=== PATIENT | female | born 1995 | race Caucasian/White ===

== ENCOUNTER 2016-08-21 14:49 | Emergency (ER) | payer OTHER ==
[~2016-08-21] VITALS: Wt 142.9 kg
[~2016-08-21 14:49] MED LIST: AMOXICILLIN500 M2 PO; AMOXICILLIN500 MG PO; AUGMENTIN 875 M1 TAB PO; BACTRIM DS 8001 TA1 PO; BIRTHCONTROL; CATAFLAM50 MG PO; CELEXA10 MG PO; CLARITIN10 MG PO; FLOMAX0.4 MG PO; HYDROCHLOROTHIA25 M1 PO; KEFLEX500 MG PO; LAMICTAL200 MG PO; LOMOTIL 0.025 M1 TA1 PO; MEDROL DOSEPAK4 MG PO; MONO-LINYAH 281 EACH PO; MOTRIN800 MG PO; NO DAILY MEDS; NORCO 5-325 TA1 EACH PO; PHENERGAN W/DM480 ML PO; PREMARIN0.625 MG PO; PROTONIX40 MG PO; PYRIDIUM200 M1 PO; ROBITUSSIN AC 110 ML PO; SINGULAIR10 M1 PO; TESSALON PERLE200 MG PO; VENTOLIN H0.09 MG/AC INH; VICODIN 5/500 505 MG PO; ZITHROMAX Z PA250 MG PO; ZITHROMAX250 MG PO; ZOFRAN ODT4 MG SL; ZYRTEC10 MG PO
[2016-08-21] MEDS ORDERED: TRAZODONE50 MG PO (15:00)
[2016-08-21] MEDS ORDERED: ATENOLOL50 M1 PO (15:01)
[2016-08-21] MEDS ORDERED: ZOLOFT25 MG PO (15:01)
[2016-08-21 15:54] LABS: BASO % 0.3 % (0.0-1.0); EOS # 0.1 10*3/uL (0.0-0.4); HEMATOCRIT 38.8 % (37.0-47.0); HEMOGLOBIN 12.7 g/dl (12.0-16.0); IG # 0.1 10*3/uL (0.0-0.1); LYMPH % 25.4 % (27.0-41.0); MEAN CELL VOLUME 95.6 fl (81.0-99.0); MEAN CORPUSCULAR HGB 31.3 pg (27.0-31.0); MEAN CORPUSCULAR HGB CONC 32.7 g/dl (33.0-37.0); MEAN PLATELET VOLUME 9.3 fl (9.6-12.3); MONO # 0.8 10*3/uL (0.1-1.0); MONO % 6.5 % (3.0-9.0); NEUT # 7.9 10*3/uL (2.3-7.9); NEUT % 66.4 % (47.0-73.0); PLATELET COUNT AUTOMATED 350 10*3/uL (130-400); RED BLOOD COUNT 4.06 10*6/uL (4.10-5.10); RED CELL DISTRI WIDTH 13.4 % (0-14.5); WHITE BLOOD COUNT 11.9 10*3/uL (4.8-10.8)
[2016-08-21 16:10] LABS: ALBUMIN 2.9 gm/dl (3.1-4.5); ALKALINE PHOSPHATASE 66 U/L (45-117); BILIRUBIN, TOTAL 0.3 mg/dl (0.2-1.0); BUN 6 mg/dl (7-24); CARBON DIOXIDE 26 mmol/L (21-32); CHLORIDE 105 mmol/L (98-107); EST GLOM FILT AFRICAN AMERICAN > 60 ml/min; GLUCOSE 105 mg/dL (65-99); POTASSIUM 4.2 mmol/L (3.5-5.1); SGOT/AST 25 IU/L (3-35); SGPT/ALT 25 U/L (12-78); SODIUM 140 mmol/L (136-145); TOTAL PROTEIN 7.7 gm/dL (6.4-8.2)
[2016-08-21 16:38] LABS: BILIRUBIN NEGATIVE (NEGATIVE); BLOOD NEGATIVE (NEGATIVE); CLARITY SL CLOUDY (CLEAR); COLOR YELLOW (YELLOW); GLUCOSE NEGATIVE (NEGATIVE); KETONE NEGATIVE (NEGATIVE); LEUKO ESTERASE 1+ (NEGATIVE); NITRITE NEGATIVE (NEGATIVE); PROTEIN NEGATIVE (NEGATIVE); SPECIFIC GRAVITY 1.025 (1.005-1.030); UROBILINOGEN 0.2 E.U./dl (0.2-1.0)
[2016-08-21 16:52] LABS: BACTERIA 1+; EPITHELIAL CELLS 55-60; RBC 0-2 rbc/hpf (0-2); URINE REFLEX COMMENT YES (NO)
[2016-08-21 16:54] VITALS: BP 115/62
[2016-08-21 17:00] LABS: URINE AMPHETAMINES < 1000 (1000ng/ml); URINE BARBITURATES < 200 (200ng/ml); URINE COCAINE < 300 (300ng/ml)
[2016-08-21] MEDS ORDERED: BACTRIM DS 8001 TA1 PO (17:22)
== END 2016-08-21 17:31 | disposition home or self-care (01) ==
LOC: ED 14:49
PROVIDERS: Physician Assistant
DX: N30.00 Acute cystitis without hematuria (principal); R19.7 Diarrhea, unspecified; I10 Essential (primary) hypertension; Z79.899 Other long term (current) drug therapy

== ENCOUNTER → 2016-09-13 | Day surgery (SDC) | payer OTHER ==
[~2016-09-13] VITALS: Ht 165.1 cm; Wt 145.1 kg
[~2016-09-13] MED LIST changes: +ATENOLOL50 M1 PO; +AUGMENTIN 875-875 MG PO; +DIFLUCAN150 MG PO; +NYSTATIN100000 U/M PO; +OMEPRAZOLE40 MG PO; +TRAZODONE50 MG PO; +ZOLOFT25 MG PO
--- NOTE | ~2016-09-13 | O ---
[place], [place] O[facility]ATIVE NOTE [id number] UN[facility] #: [id number] ROOM: DOCTOR: QUOC GARSIA,MARYCHUY BIRTHDATE: [birth year] DOS: 09/13/2016 INDICATIONS: The patient with dyspepsia and epigastric distress. PROCEDURE: Today's procedure part of investigation is panendoscopy plus biopsy. PREMEDICATION: Versed and Diprivan. SCOPE: Olympus forward-viewing gastroscope Q10 video. REPORT: After putting the patient in left lateral position and application of lubricant to the scope, the scope was introduced. Thereafter, under direct visualization, I advanced the length of esophagus without difficulty. Gastric pouch was entered. Distal esophageal ulceration was identified at the esophagogastric junction. This was photographed, biopsied. Gastric pouch was entered. Gastritis was seen. Duodenal bulb, second and third part within normal limits. The patient extubated and tolerated procedure well. IMPRESSION: Distal esophageal ulcer, gastritis. PLAN AND DISCUSSION: Protonix 40 mg 1 every day would be recommended clinical reassessment. Awaiting biopsy results. The patient was advised to be on antireflux and observation after diet with low fat and high fiber diet. Workup is in progress. Follow up routinely with you in office and with us p.r.n. MARYCHUY KUMARI MD CM:OPRECORD:OPERATIVE NOTE 1404 [id number] MARYCHUY KUMARI MD 09/13/16 1623 interface
--- NOTE | ~2016-09-13 | O ---
[place], [place] OPERATIVE NOTE [facility] [id number] UNIT #: [id number] ROOM: DOCTOR: QUOC GARSIA,MARYCHUY BIRTHDATE: [birth year] DOS: 09/13/2016 INDICATIONS: The patient is a 21-year-old who has presented with epigastric abdominal pain and cramp. PAST MEDICAL HISTORY: With morbid obesity, depression, anxiety, and hypertension. PAST SURGICAL HISTORY: Minor surgeries. PHYSICAL FINDINGS: Acanthosis nigricans around the neck, otherwise except morbid obesity and back surgeries has been noticed. PROCEDURE: Today's procedure part of investigation is panendoscopy and colonoscopy. PREMEDICATION: Versed and Diprivan. SCOPE: Olympus folding colonoscope 10L video. REPORT: After putting the patient in the left lateral position and after application of lubricant to the scope, the scope was introduced. Thereafter, under direct visualization, I advanced through the length of colon without difficulty. Base of the cecum explored, appendiceal orifice identified, and ileocecal valve was defined. No acute pathology seen. The patient extubated, tolerated procedure well. IMPRESSION: Normal colonoscopic examination. PLAN AND DISCUSSION: We are concerned about gastric anatomy. MARYCHUY KUMARI MD CM:OPRECORD:OPERATIVE NOTE 1404 1619 MARYCHUY KUMARI MD 09/13/16 1620 interface
[2016-09-13 12:19] VITALS: BP 130/71
[2016-09-13 13:53] VITALS: BP 92/52
[2016-09-13 14:08] VITALS: BP 113/86
[2016-09-13 14:23] VITALS: BP 132/81
== END | disposition home or self-care (01) ==
LOC: SDC 09-09 10:15
DX: Z12.11 Encounter for screening for malignant neoplasm of colon (principal); K29.50 Unspecified chronic gastritis without bleeding; K21.0 Gastro-esophageal reflux disease with esophagitis; K22.10 Ulcer of esophagus without bleeding; E66.01 Morbid (severe) obesity due to excess calories; F32.9 Major depressive disorder, single episode, unspecified; F41.9 Anxiety disorder, unspecified; I10 Essential (primary) hypertension; J45.909 Unspecified asthma, uncomplicated; Z80.9 Family history of malignant neoplasm, unspecified; Z82.49 Family history of ischemic heart disease and other diseases of the circulatory system; F17.210 Nicotine dependence, cigarettes, uncomplicated

== ENCOUNTER 2016-09-19 10:40 | Emergency (ER) | payer OTHER ==
[~2016-09-19] VITALS: Ht 165.1 cm; Wt 136.1 kg
[~2016-09-19 10:40] MED LIST changes: -AUGMENTIN 875-875 MG PO; -DIFLUCAN150 MG PO; -NYSTATIN100000 U/M PO; -OMEPRAZOLE40 MG PO
[2016-09-19 10:43] VITALS: BP 131/69
[2016-09-19] MEDS ORDERED: OMEPRAZOLE40 MG PO (10:46)
[2016-09-19] MEDS ORDERED: NYSTATIN100000 U/M PO (11:54)
[2016-09-19] MEDS ORDERED: DIFLUCAN150 MG PO (11:54)
[2016-09-19] MEDS ORDERED: AUGMENTIN 875-875 MG PO (11:54)
== END 2016-09-19 12:06 | disposition home or self-care (01) ==
LOC: ED 10:40
DX: H65.03 Acute serous otitis media, bilateral (principal); J01.10 Acute frontal sinusitis, unspecified; B37.9 Candidiasis, unspecified; L29.2 Pruritus vulvae; R30.9 Painful micturition, unspecified; J45.909 Unspecified asthma, uncomplicated; F32.9 Major depressive disorder, single episode, unspecified; F17.200 Nicotine dependence, unspecified, uncomplicated; Z79.899 Other long term (current) drug therapy

== ENCOUNTER 2016-11-02 21:51 | Emergency (ER) | payer OTHER ==
[~2016-11-02] VITALS: Ht 165.1 cm; Wt 136.1 kg
[~2016-11-02 21:51] MED LIST changes: +AUGMENTIN 875-875 MG PO; +DIFLUCAN150 MG PO; +NYSTATIN100000 U/M PO; +OMEPRAZOLE40 MG PO
[2016-11-02 22:04] VITALS: BP 151/100
[2016-11-02] MEDS ORDERED: VRAYLAR3 MG PO (22:05)
[2016-11-02 23:11] LABS: BASO % 0.5 % (0.0-1.0); EOS # 0.1 10*3/uL (0.0-0.4); EOS % 1.3 % (1.0-4.0); HEMATOCRIT 35.8 % (37.0-47.0); HEMOGLOBIN 11.8 g/dl (12.0-16.0); LYMPH # 2.7 10*3/uL (1.3-4.4); LYMPH % 31.7 % (27.0-41.0); MEAN CELL VOLUME 95.5 fl (81.0-99.0); MEAN CORPUSCULAR HGB 31.5 pg (27.0-31.0); MEAN PLATELET VOLUME 9.2 fl (9.6-12.3); MONO # 0.5 10*3/uL (0.1-1.0); MONO % 5.4 % (3.0-9.0); NEUT # 5.1 10*3/uL (2.3-7.9); NEUT % 60.9 % (47.0-73.0); PLATELET COUNT AUTOMATED 303 10*3/uL (130-400); RED BLOOD COUNT 3.75 10*6/uL (4.10-5.10); WHITE BLOOD COUNT 8.4 10*3/uL (4.8-10.8)
[2016-11-02 23:26] LABS: ALBUMIN 2.7 gm/dl (3.1-4.5); ALKALINE PHOSPHATASE 62 U/L (45-117); BILIRUBIN, TOTAL 0.2 mg/dl (0.2-1.0); BUN 7 mg/dl (7-24); C-REACTIVE PROTEIN 2.31 MG/DL (0-0.3); CARBON DIOXIDE 25 mmol/L (21-32); CHLORIDE 106 mmol/L (98-107); EST GLOM FILT AFRICAN AMERICAN > 60 ml/min; GLUCOSE 154 mg/dL (65-99); POTASSIUM 3.8 mmol/L (3.5-5.1); SGOT/AST 39 IU/L (3-35); SGPT/ALT 31 U/L (12-78); SODIUM 141 mmol/L (136-145)
[2016-11-02 23:28] LABS: TROPONIN I < 0.015 ng/ml (<0.045)
[2016-11-02] MEDS ORDERED: REGLAN5 MG PO (23:49)
[2016-11-02] MEDS ORDERED: CLINDAMYCIN HC300 MG PO (23:49)
[2016-11-02] MEDS ORDERED: Motrin,Rufen800 MG PO (23:49)
== END 2016-11-03 00:35 | disposition home or self-care (01) ==
LOC: ED 21:51
PROVIDERS: Emergency Medicine Emergency Medical Services
DX: K58.0 Irritable bowel syndrome with diarrhea (principal); K02.9 Dental caries, unspecified; K04.01 Reversible pulpitis; R11.2 Nausea with vomiting, unspecified; K27.9 Peptic ulcer, site unspecified, unspecified as acute or chronic, without hemorrhage or perforation; F17.200 Nicotine dependence, unspecified, uncomplicated; J45.909 Unspecified asthma, uncomplicated; Z79.899 Other long term (current) drug therapy

== ENCOUNTER 2017-01-28 14:57 | Emergency (ER) | payer OTHER ==
[~2017-01-28] VITALS: Ht 165.1 cm; Wt 136.1 kg
[~2017-01-28 14:57] MED LIST changes: +CLINDAMYCIN HC300 MG PO; +Motrin,Rufen800 MG PO; +REGLAN5 MG PO; +VRAYLAR3 MG PO
[2017-01-28 15:04] VITALS: BP 158/100
[2017-01-28] MEDS ORDERED: CLEOCIN HCL300 MG PO (15:21)
[2017-01-28] MEDS ORDERED: NAPROSYN500 MG PO (15:22)
== END 2017-01-28 19:40 | disposition home or self-care (01) ==
LOC: ED 14:57
DX: K02.9 Dental caries, unspecified (principal); Z87.11 Personal history of peptic ulcer disease; Z98.890 Other specified postprocedural states; Z79.899 Other long term (current) drug therapy

== ENCOUNTER 2017-02-25 11:42 | Emergency (ER) | payer OTHER ==
[~2017-02-25] VITALS: Ht 1676 cm; Wt 136.1 kg
[~2017-02-25 11:42] MED LIST changes: +CLEOCIN HCL300 MG PO; +NAPROSYN500 MG PO
[2017-02-25 11:52] VITALS: BP 132/70
[2017-02-25] MEDS ORDERED: AMOXICILLIN500 M2 PO (12:28)
== END 2017-02-25 13:25 | disposition home or self-care (01) ==
LOC: ED 11:42
DX: K04.7 Periapical abscess without sinus (principal); R22.0 Localized swelling, mass and lump, head; F17.200 Nicotine dependence, unspecified, uncomplicated; Z98.890 Other specified postprocedural states; Z79.899 Other long term (current) drug therapy

== ENCOUNTER 2017-03-29 17:25 | Inpatient (IN) | payer OTHER ==
[~2017-03-29] VITALS: Ht 165.1 cm; Wt 146.6 kg
[2017-03-29 17:29] VITALS: BP 125/81
[2017-03-29 17:58] LABS: BASO # 0.1 10*3/uL (0.0-0.1); BASO % 0.3 % (0.0-1.0); EOS # 0.2 10*3/uL (0.0-0.4); EOS % 0.9 % (1.0-4.0); HEMATOCRIT 40.3 % (37.0-47.0); HEMOGLOBIN 13.1 g/dl (12.0-16.0); LYMPH # 2.2 10*3/uL (1.3-4.4); LYMPH % 13.4 % (27.0-41.0); MEAN CORPUSCULAR HGB 30.9 pg (27.0-31.0); MEAN CORPUSCULAR HGB CONC 32.5 g/dl (33.0-37.0); MEAN PLATELET VOLUME 9.7 fl (9.6-12.3); MONO # 0.9 10*3/uL (0.1-1.0); MONO % 5.4 % (3.0-9.0); NEUT # 12.9 10*3/uL (2.3-7.9); NEUT % 79.5 % (47.0-73.0); PLATELET COUNT AUTOMATED 310 10*3/uL (130-400); RED BLOOD COUNT 4.24 10*6/uL (4.10-5.10); RED CELL DISTRI WIDTH 13.6 % (0-14.5); WHITE BLOOD COUNT 16.2 10*3/uL (4.8-10.8)
[2017-03-29 18:13] LABS: ALBUMIN 3.1 gm/dl (3.1-4.5); ALKALINE PHOSPHATASE 77 U/L (45-117); BUN 6 mg/dl (7-24); CHLORIDE 99 mmol/L (98-107); CREATININE 0.72 mg/dL (0.55-1.02); POTASSIUM 3.4 mmol/L (3.5-5.1); SGOT/AST 13 IU/L (3-35); SGPT/ALT 21 U/L (12-78); SODIUM 135 mmol/L (136-145); TOTAL PROTEIN 7.7 gm/dL (6.4-8.2)
[2017-03-29 19:20] VITALS: BP 124/79
[2017-03-29 20:00] VITALS: BP 120/80; BP 120/86
[2017-03-29] MEDS ORDERED: ZOLOFT100 MG PO (20:45)
[2017-03-29 22:14] LABS: BILIRUBIN NEGATIVE (NEGATIVE); BLOOD 1+ (NEGATIVE); CLARITY CLEAR (CLEAR); COLOR YELLOW (YELLOW); GLUCOSE TRACE (NEGATIVE); KETONE NEGATIVE (NEGATIVE); LEUKO ESTERASE NEGATIVE (NEGATIVE); NITRITE NEGATIVE (NEGATIVE); PH 6.5 (5.0-9.0); UROBILINOGEN 0.2 E.U./dl (0.2-1.0)
[2017-03-29 22:29] LABS: BACTERIA 2+
[2017-03-30] VITALS: BP 132/72
[2017-03-30 06:12] LABS: BASO % 0.1 % (0.0-1.0); HEMATOCRIT 39.3 % (37.0-47.0); HEMOGLOBIN 12.8 g/dl (12.0-16.0); LYMPH # 1.5 10*3/uL (1.3-4.4); LYMPH % 9.5 % (27.0-41.0); MEAN CELL VOLUME 94.9 fl (81.0-99.0); MEAN CORPUSCULAR HGB 30.9 pg (27.0-31.0); MEAN CORPUSCULAR HGB CONC 32.6 g/dl (33.0-37.0); MEAN PLATELET VOLUME 9.5 fl (9.6-12.3); MONO # 0.4 10*3/uL (0.1-1.0); MONO % 2.5 % (3.0-9.0); NEUT # 13.3 10*3/uL (2.3-7.9); NEUT % 87.3 % (47.0-73.0); PLATELET COUNT AUTOMATED 329 10*3/uL (130-400); RED BLOOD COUNT 4.14 10*6/uL (4.10-5.10); RED CELL DISTRI WIDTH 13.6 % (0-14.5); WHITE BLOOD COUNT 15.3 10*3/uL (4.8-10.8)
[2017-03-30 06:27] LABS: ALKALINE PHOSPHATASE 89 U/L (45-117); BUN 7 mg/dl (7-24); CHLORIDE 104 mmol/L (98-107); CHOLESTEROL 123 mg/dL (<200); CREATININE 0.82 mg/dL (0.55-1.02); FREE T4 1.23 ng/dl (0.76-1.46); HDL CHOLESTEROL 18 mg/dl (40-60); LDL CHOLESTEROL 82 mg/dL (9-159); PHOSPHOROUS 1.9 mg/dL (2.5-4.9); POTASSIUM 3.7 mmol/L (3.5-5.1); SGOT/AST 14 IU/L (3-35); SGPT/ALT 25 U/L (12-78); SODIUM 137 mmol/L (136-145); TOTAL PROTEIN 8.1 gm/dL (6.4-8.2); TRIGLYCERIDES 116 mg/dl (<150); VLDL CHOLESTEROL 23 mg/dL (6-40)
[2017-03-30 06:47] LABS: ACT PARTIAL THROMBO TIME 24.5 SECONDS (20.8-31.5)
[2017-03-30 07:38] LABS: VITAMIN D, 25-HYDROXY 11.6 ng/mL (30-100)
--- NOTE | 2017-03-30 07:44 | NUR ---
MEDICATED PO MOTRIN FOR C/O HEADACHE.
[2017-03-30 08:00] VITALS: BP 122/88
--- NOTE | 2017-03-30 08:00 | NUR ---
RESTING QUIETLY NO C/O NO DISTRESS NOTED. STATES SHE FEELS GOOD. IV FLUIDS INFUSING. DENIES NAUSEA. SEE SHIFT ASSESSMENT.E
[2017-03-30] MEDS ORDERED: PROAIR HFA8.5 GM INH (12:33)
[2017-03-30] MEDS ORDERED: PREDNISONE10 MG PO (12:33)
[2017-03-30] MEDS ORDERED: METFORMIN HCL500 M2 PO (12:33)
[2017-03-30] MEDS ORDERED: LEVAQUIN750 M1 PO (12:33)
--- NOTE | 2017-03-30 13:59 | NUR ---
DISCHARGED TO HOME IN CARE OF FAMILY. INSTRUCTIONS AND PERSCRIPTIONS REVIEWED WITH PT. FLU VACCINE GIVEN.
== END 2017-03-30 13:59 | disposition home or self-care (01) | DRG 871 ==
LOC: ED 17:25 → EDHOLD 18:45 → 5E 19:04
PROVIDERS: Hospitalist; Nurse Practitioner Family; ADMIT Internal Medicine
DX: A41.9 Sepsis, unspecified organism (principal); J18.9 Pneumonia, unspecified organism; E44.0 Moderate protein-calorie malnutrition; E87.2 Acidosis; E11.65 Type 2 diabetes mellitus with hyperglycemia; E87.1 Hypo-osmolality and hyponatremia; Z68.43 Body mass index [BMI] 50.0-59.9, adult; E83.39 Other disorders of phosphorus metabolism; J20.9 Acute bronchitis, unspecified; R65.20 Severe sepsis without septic shock; J42 Unspecified chronic bronchitis; I10 Essential (primary) hypertension; F31.9 Bipolar disorder, unspecified; E87.6 Hypokalemia; Z79.2 Long term (current) use of antibiotics; Z79.899 Other long term (current) drug therapy; Z72.0 Tobacco use; Z87.11 Personal history of peptic ulcer disease; Z87.440 Personal history of urinary (tract) infections; Z72.89 Other problems related to lifestyle; Z82.49 Family history of ischemic heart disease and other diseases of the circulatory system; Z80.8 Family history of malignant neoplasm of other organs or systems; Z56.0 Unemployment, unspecified; Z79.84 Long term (current) use of oral hypoglycemic drugs

== ENCOUNTER 2017-04-17 16:00 | Emergency (ER) | payer OTHER ==
[~2017-04-17] VITALS: Ht 165.1 cm; Wt 145.1 kg
--- NOTE | ~2017-04-17 | EKG ---
[place], [place] ELECTROCARDIOGRAM REPORT NAME: EVER REYES UNIT #: [id number] ROOM: DOCTOR: NORIS BLUM MD BIRTHDATE: [birth year] DOS: 04/17/2017 TIME: 1640 hours. FINDINGS: 1. Sinus tachycardia at 120 beats per minute. 2. Flat T-wave in limb leads in 1 and aVL. 3. An abnormal ECG. 4. No previous tracing is available for comparison. NORIS BLUM MD CM:EKGRPT:ELECTROCARDIOGRAM REPORT 1732 12 NORIS BLUM MD
[~2017-04-17 16:00] MED LIST changes: +LEVAQUIN750 M1 PO; +METFORMIN HCL500 M2 PO; +PREDNISONE10 MG PO; +PROAIR HFA8.5 GM INH; +ZOLOFT100 MG PO
[2017-04-17 17:16] LABS: BASO % 0.6 % (0.0-1.0); EOS # 0.2 10*3/uL (0.0-0.4); HEMATOCRIT 40.5 % (37.0-47.0); HEMOGLOBIN 13.4 g/dl (12.0-16.0); LYMPH # 1.3 10*3/uL (1.3-4.4); MEAN CELL VOLUME 92.5 fl (81.0-99.0); MEAN CORPUSCULAR HGB 30.6 pg (27.0-31.0); MEAN CORPUSCULAR HGB CONC 33.1 g/dl (33.0-37.0); MEAN PLATELET VOLUME 9.1 fl (9.6-12.3); MONO # 0.4 10*3/uL (0.1-1.0); MONO % 8.9 % (3.0-9.0); NEUT # 2.8 10*3/uL (2.3-7.9); NEUT % 58.3 % (47.0-73.0); PLATELET COUNT AUTOMATED 271 10*3/uL (130-400); RED BLOOD COUNT 4.38 10*6/uL (4.10-5.10); RED CELL DISTRI WIDTH 13.4 % (0-14.5); WHITE BLOOD COUNT 4.7 10*3/uL (4.8-10.8)
[2017-04-17 17:33] LABS: ALBUMIN 3.3 gm/dl (3.1-4.5); ALKALINE PHOSPHATASE 66 U/L (45-117); BUN 10 mg/dl (7-24); CHLORIDE 105 mmol/L (98-107); CREATININE 0.66 mg/dL (0.55-1.02); LIPASE 152 U/L (73-393); POTASSIUM 3.4 mmol/L (3.5-5.1); SGOT/AST 39 IU/L (3-35); SGPT/ALT 50 U/L (12-78); SODIUM 137 mmol/L (136-145); TOTAL PROTEIN 7.6 gm/dL (6.4-8.2)
[2017-04-17 17:35] LABS: TROPONIN I < 0.015 ng/ml (<0.045)
[2017-04-17 19:16] VITALS: BP 124/78
[2017-04-17] MEDS ORDERED: TESSALON PERLE100 M1 PO (19:17)
[2017-04-17] MEDS ORDERED: ZITHROMAX250 MG PO (19:17)
== END 2017-04-17 19:26 | disposition home or self-care (01) ==
LOC: ED 16:00
PROVIDERS: Physician Assistant
DX: J06.9 Acute upper respiratory infection, unspecified (principal); F17.210 Nicotine dependence, cigarettes, uncomplicated; F10.10 Alcohol abuse, uncomplicated; Z79.899 Other long term (current) drug therapy

== ENCOUNTER 2017-12-04 18:21 | Emergency (ER) | payer OTHER ==
[~2017-12-04] VITALS: Ht 165.1 cm; Wt 143.3 kg
[~2017-12-04 18:21] MED LIST changes: +TESSALON PERLE100 M1 PO
[2017-12-04 18:27] VITALS: BP 135/79
[2017-12-04] MEDS ORDERED: ZITHROMAX250 MG PO (19:46)
[2017-12-04] MEDS ORDERED: PREDNISONE20 M1 PO (19:46)
[2017-12-04] MEDS ORDERED: PROAIR HFA8.5 GM INH (19:46)
== END 2017-12-04 20:00 | disposition home or self-care (01) ==
LOC: ED 18:21
DX: R05 Cough (principal); R09.81 Nasal congestion; R06.02 Shortness of breath; F17.200 Nicotine dependence, unspecified, uncomplicated; Z79.899 Other long term (current) drug therapy

== ENCOUNTER → 2017-12-17 | Outpatient (CLI) | payer OTHER ==
[~2017-12-17] MED LIST changes: +PREDNISONE20 M1 PO
[2017-12-17 15:05] LABS: PTH INTACT 64.4 pg/mL (18.5-88.0); VITAMIN D, 25-HYDROXY 17.1 ng/mL (30-100)
== END | disposition home or self-care (01) ==
LOC: LAB 13:08
PROVIDERS: Nurse Practitioner Family
DX: E83.51 Hypocalcemia (principal)

== ENCOUNTER → 2018-01-21 | Outpatient (CLI) | payer OTHER | END | disposition home or self-care (01) | LOC: US 09:21 | DX: K76.0 Fatty (change of) liver, not elsewhere classified (principal); K90.49 Malabsorption due to intolerance, not elsewhere classified ==

== ENCOUNTER → 2018-02-03 | Day surgery (SDC) | payer OTHER ==
[~2018-02-03] VITALS: Ht 165.1 cm; Wt 141.5 kg
[2018-02-03 08:00] VITALS: BP 123/68
[2018-02-03 10:04] VITALS: BP 108/58
[2018-02-03 10:15] VITALS: BP 114/67
[2018-02-03 10:34] VITALS: BP 114/76
== END | disposition home or self-care (01) ==
LOC: SDC 01-30 09:30
DX: K20.9 Esophagitis, unspecified (principal); I10 Essential (primary) hypertension; E11.9 Type 2 diabetes mellitus without complications; E66.01 Morbid (severe) obesity due to excess calories; J45.909 Unspecified asthma, uncomplicated; F31.9 Bipolar disorder, unspecified; F17.210 Nicotine dependence, cigarettes, uncomplicated; Z68.42 Body mass index [BMI] 45.0-49.9, adult; Z98.890 Other specified postprocedural states; Z79.899 Other long term (current) drug therapy; Z80.0 Family history of malignant neoplasm of digestive organs

== ENCOUNTER 2019-01-30 14:37 | Emergency (ER) | payer OTHER ==
[~2019-01-30] VITALS: Ht 167.6 cm; Wt 145.1 kg
[~2019-01-30 14:37] MED LIST changes: +OMNICEF300 MG PO
[2019-01-30 14:43] VITALS: BP 127/73
[2019-01-30] MEDS ORDERED: ALLEGRA ALLERG180 M2 PO (14:56)
[2019-01-30] MEDS ORDERED: FLONASE ALLERG9.9 ML NAS (14:56)
== END 2019-01-30 15:34 | disposition home or self-care (01) ==
LOC: ED 14:37
DX: J06.9 Acute upper respiratory infection, unspecified (principal); I10 Essential (primary) hypertension; E11.9 Type 2 diabetes mellitus without complications; F17.200 Nicotine dependence, unspecified, uncomplicated; Z79.899 Other long term (current) drug therapy

== ENCOUNTER → 2019-06-16 | Outpatient (CLI) | payer OTHER ==
[~2019-06-16] MED LIST changes: +ALLEGRA ALLERG180 M2 PO; +FLONASE ALLERG9.9 ML NAS
== END | disposition home or self-care (01) ==
LOC: RAD 16:00
DX: R05 Cough (principal); E11.9 Type 2 diabetes mellitus without complications; R53.83 Other fatigue; J15.9 Unspecified bacterial pneumonia; F17.210 Nicotine dependence, cigarettes, uncomplicated

== ENCOUNTER 2019-12-06 20:06 | Emergency (ER) | payer OTHER ==
[~2019-12-06] VITALS: Ht 165.1 cm; Wt 140.6 kg
[2019-12-06 20:19] VITALS: BP 137/84
[2019-12-06] MEDS ORDERED: AMOXICILLIN500 M3 PO (21:08)
== END 2019-12-06 21:25 | disposition home or self-care (01) ==
LOC: ED 20:06
DX: K04.7 Periapical abscess without sinus (principal); F41.9 Anxiety disorder, unspecified; E11.9 Type 2 diabetes mellitus without complications; F32.9 Major depressive disorder, single episode, unspecified; J45.909 Unspecified asthma, uncomplicated; Z79.899 Other long term (current) drug therapy

== ENCOUNTER → 2020-01-05 | Outpatient (CLI) | payer OTHER ==
[~2020-01-05] MED LIST changes: +AMOXICILLIN500 M3 PO
== END | disposition home or self-care (01) ==
LOC: COVID19 01:02
PROVIDERS: ATTEND Nurse Practitioner Family
DX: Z20.828 Contact with and (suspected) exposure to other viral communicable diseases (principal)

== ENCOUNTER → 2020-01-12 | Outpatient (CLI) | payer OTHER | END | disposition home or self-care (01) | LOC: RAD 14:43 | PROVIDERS: ATTEND Nurse Practitioner Family | DX: J15.9 Unspecified bacterial pneumonia (principal) ==

== ENCOUNTER 2020-08-04 15:17 | Emergency (ER) | payer OTHER ==
[~2020-08-04] VITALS: Ht 165.1 cm; Wt 145.1 kg
[2020-08-04 15:23] VITALS: BP 150/74
[2020-08-04] MEDS ORDERED: CLINDAMYCIN HC300 MG PO (15:49)
== END 2020-08-04 15:58 | disposition home or self-care (01) ==
LOC: ED 15:17
DX: K04.7 Periapical abscess without sinus (principal); Z79.899 Other long term (current) drug therapy; Z98.890 Other specified postprocedural states

== ENCOUNTER → 2020-09-29 | Outpatient (CLI) | payer OTHER | END | disposition home or self-care (01) | LOC: US 12:18 | PROVIDERS: ATTEND Nurse Practitioner Family | DX: E11.9 Type 2 diabetes mellitus without complications (principal); R19.7 Diarrhea, unspecified; K90.49 Malabsorption due to intolerance, not elsewhere classified; F17.210 Nicotine dependence, cigarettes, uncomplicated; E66.9 Obesity, unspecified; I10 Essential (primary) hypertension ==

== ENCOUNTER → 2020-10-19 | Outpatient (CLI) | payer OTHER | END | disposition home or self-care (01) | LOC: US 10-10 09:30 | PROVIDERS: ATTEND Nurse Practitioner Family | DX: R16.0 Hepatomegaly, not elsewhere classified (principal); I10 Essential (primary) hypertension; E11.9 Type 2 diabetes mellitus without complications; R19.7 Diarrhea, unspecified; K90.49 Malabsorption due to intolerance, not elsewhere classified; F17.210 Nicotine dependence, cigarettes, uncomplicated; E66.9 Obesity, unspecified ==

== ENCOUNTER 2021-01-04 12:32 | Emergency (ER) | payer OTHER ==
[~2021-01-04] VITALS: Wt 136.1 kg
[2021-01-04 12:39] VITALS: BP 132/80
[2021-01-04] MEDS ORDERED: AMOXICILLIN500 M2 PO (12:53)
[2021-01-04] MEDS ORDERED: Motrin,Rufen800 MG PO (12:53)
== END 2021-01-04 13:07 | disposition home or self-care (01) ==
LOC: ED 12:32
DX: K08.89 Other specified disorders of teeth and supporting structures (principal); Z79.899 Other long term (current) drug therapy

== ENCOUNTER → 2021-07-23 | Outpatient (CLI) | payer OTHER | END | disposition home or self-care (01) | LOC: RAD 10:03 | PROVIDERS: ATTEND Nurse Practitioner Family | DX: E11.9 Type 2 diabetes mellitus without complications (principal); E66.9 Obesity, unspecified; M62.838 Other muscle spasm; Z72.0 Tobacco use; E28.2 Polycystic ovarian syndrome; I10 Essential (primary) hypertension ==

== ENCOUNTER 2021-07-27 21:08 | Emergency (ER) | payer OTHER ==
[~2021-07-27] VITALS: Ht 165.1 cm; Wt 145.1 kg
[2021-07-27 21:15] VITALS: BP 135/98
[2021-07-27 22:17] LABS: BASO # 0.1 10*3/uL (0.0-0.1); BASO % 0.5 % (0.0-1.0); EOS # 0.2 10*3/uL (0.0-0.4); EOS % 1.9 % (1.0-4.0); HEMATOCRIT 41.2 % (37.0-47.0); MEAN CELL VOLUME 94.5 fl (81.0-99.0); MEAN CORPUSCULAR HGB 30.7 pg (27.0-31.0); MEAN CORPUSCULAR HGB CONC 32.5 g/dl (33.0-37.0); MEAN PLATELET VOLUME 8.7 fl (9.6-12.3); MONO # 0.5 10*3/uL (0.1-1.0); MONO % 4.6 % (3.0-9.0); NEUT # 6.9 10*3/uL (2.3-7.9); NEUT % 64.7 % (47.0-73.0); PLATELET COUNT AUTOMATED 332 10*3/uL (130-400); RED BLOOD COUNT 4.36 10*6/uL (4.10-5.10); RED CELL DISTRI WIDTH 13.1 % (0-14.5); WHITE BLOOD COUNT 10.7 10*3/uL (4.8-10.8)
[2021-07-27 22:48] LABS: BILIRUBIN Negative (Negative); BLOOD Negative (Negative); CLARITY Clear (Clear); COLOR Yellow (Yellow); GLUCOSE Negative (Negative); KETONE Negative (Negative); LEUKO ESTERASE Negative (Negative); NITRITE Negative (Negative); SPECIFIC GRAVITY 1.025 (1.001-1.030)
[2021-07-27 22:56] LABS: ALKALINE PHOSPHATASE 72 U/L (45-117); BUN 11 mg/dl (7-24); CHLORIDE 104 mmol/L (98-107); CREATININE 0.71 mg/dL (0.55-1.02); POTASSIUM 3.9 mmol/L (3.5-5.1); SGOT/AST 11 IU/L (3-35); SGPT/ALT 23 U/L (12-78); SODIUM 137 mmol/L (136-145); TOTAL PROTEIN 7.2 gm/dL (6.4-8.2)
[2021-07-27 23:10] LABS: RBC 0-2 rbc/hpf (0-2)
[2021-07-27] MEDS ORDERED: Motrin,Rufen800 MG PO (23:12)
== END 2021-07-27 23:17 | disposition home or self-care (01) ==
LOC: ED 21:08
PROVIDERS: Nurse Practitioner Family
DX: S39.011A Strain of muscle, fascia and tendon of abdomen, initial encounter (principal); Z79.899 Other long term (current) drug therapy; Z87.891 Personal history of nicotine dependence; X58.XXXA Exposure to other specified factors, initial encounter; Y93.89 Activity, other specified; Y92.89 Other specified places as the place of occurrence of the external cause; Y99.8 Other external cause status

== ENCOUNTER → 2021-07-31 | Outpatient (CLI) | payer OTHER | END | disposition home or self-care (01) | LOC: RAD 15:00 | PROVIDERS: ATTEND Nurse Practitioner Family | DX: R10.9 Unspecified abdominal pain (principal); R11.0 Nausea; E11.9 Type 2 diabetes mellitus without complications ==

== ENCOUNTER 2022-08-22 02:19 | Emergency (ER) | payer OTHER ==
[~2022-08-22] VITALS: Ht 165.1 cm; Wt 127.0 kg
[2022-08-22 02:42] VITALS: BP 130/90
== END 2022-08-22 07:21 | disposition home or self-care (01) ==
LOC: ED 02:19
DX: M79.662 Pain in left lower leg (principal); K21.9 Gastro-esophageal reflux disease without esophagitis; E66.1 Drug-induced obesity; E11.9 Type 2 diabetes mellitus without complications; Z79.899 Other long term (current) drug therapy; Z87.891 Personal history of nicotine dependence

== ENCOUNTER 2022-08-27 00:33 | Emergency (ER) | payer OTHER ==
[~2022-08-27] VITALS: Ht 165.1 cm; Wt 127.0 kg
[2022-08-27 00:40] VITALS: BP 152/91
[2022-08-27 01:35] LABS: BASO % 0.5 % (0.0-1.0); EOS # 0.1 10*3/uL (0.0-0.4); HEMATOCRIT 43.5 % (37.0-47.0); LYMPH # 2.3 10*3/uL (1.3-4.4); LYMPH % 27.6 % (27.0-41.0); MEAN CELL VOLUME 94.4 fl (81.0-99.0); MEAN CORPUSCULAR HGB 32.1 pg (27.0-31.0); MEAN PLATELET VOLUME 8.8 fl (9.6-12.3); MONO # 0.4 10*3/uL (0.1-1.0); NEUT # 5.5 10*3/uL (2.3-7.9); NEUT % 65.8 % (47.0-73.0); PLATELET COUNT AUTOMATED 312 10*3/uL (130-400); RED BLOOD COUNT 4.61 10*6/uL (4.10-5.10); RED CELL DISTRI WIDTH 13.2 % (0-14.5); WHITE BLOOD COUNT 8.3 10*3/uL (4.8-10.8)
[2022-08-27 01:50] LABS: ALKALINE PHOSPHATASE 54 U/L (46-116); BUN 6 mg/dl (9-23); CHLORIDE 105 mmol/L (98-107); LIPASE 32 U/L (12-53); POTASSIUM 3.8 mmol/L (3.4-5.1); SGPT/ALT 29 U/L (10-49); TOTAL PROTEIN 6.9 gm/dL (6.0-8.0)
[2022-08-27 02:05] LABS: B-hCG (QUALITATIVE) NEGATIVE (NEGATIVE)
[2022-08-27] MEDS ORDERED: ONDANSETRON4 MG SL (02:49)
== END 2022-08-27 02:51 | disposition home or self-care (01) ==
LOC: ED 00:33
PROVIDERS: Emergency Medicine
DX: R10.9 Unspecified abdominal pain (principal); R20.0 Anesthesia of skin; R11.0 Nausea; F41.9 Anxiety disorder, unspecified; E11.9 Type 2 diabetes mellitus without complications; F32.A Depression, unspecified; J45.909 Unspecified asthma, uncomplicated; Z87.442 Personal history of urinary calculi; Z98.890 Other specified postprocedural states; F17.200 Nicotine dependence, unspecified, uncomplicated

== ENCOUNTER 2023-02-21 14:31 | Emergency (ER) | payer OTHER ==
[~2023-02-21] VITALS: Ht 165.1 cm; Wt 130.2 kg
[~2023-02-21 14:31] MED LIST changes: +ONDANSETRON4 MG SL
[2023-02-21 14:42] VITALS: BP 145/66
[2023-02-21 15:06] LABS: BILIRUBIN Negative (Negative); BLOOD 2+ (Negative); CLARITY Clear (Clear); COLOR Yellow (Yellow); GLUCOSE Negative (Negative); KETONE Negative (Negative); LEUKO ESTERASE Negative (Negative); NITRITE Negative (Negative); PH 5.5 (4.5-8.0); UROBILINOGEN 0.2 E.U./dl (0.0-1.0)
[2023-02-21 15:33] LABS: BACTERIA 1+; EPITHELIAL CELLS 0-2; WBC 0-2 wbc/hpf (0-5)
== END 2023-02-21 16:03 | disposition left against medical advice (07) ==
LOC: ED 14:31
PROVIDERS: Family Medicine
DX: R10.9 Unspecified abdominal pain (principal); R14.0 Abdominal distension (gaseous); F41.9 Anxiety disorder, unspecified; E11.9 Type 2 diabetes mellitus without complications; J45.909 Unspecified asthma, uncomplicated; Z87.442 Personal history of urinary calculi; F31.9 Bipolar disorder, unspecified; Z98.890 Other specified postprocedural states; F17.200 Nicotine dependence, unspecified, uncomplicated

== ENCOUNTER → 2023-03-04 | Outpatient (CLI) | payer OTHER | END | disposition home or self-care (01) | LOC: CT 02:16 | PROVIDERS: ATTEND Nurse Practitioner Family | DX: R10.32 Left lower quadrant pain (principal); R10.12 Left upper quadrant pain; Z87.442 Personal history of urinary calculi; Z23 Encounter for immunization ==

== ENCOUNTER → 2023-05-16 | Outpatient (CLI) | payer OTHER ==
[2023-05-16 14:33] LABS: BASO # 0.1 10*3/uL (0.0-0.1); BASO % 0.5 % (0.0-1.0); EOS # 0.1 10*3/uL (0.0-0.4); EOS % 0.9 % (1.0-4.0); HEMATOCRIT 45.1 % (37.0-47.0); LYMPH # 2.7 10*3/uL (1.3-4.4); LYMPH % 21.7 % (27.0-41.0); MEAN CELL VOLUME 96.6 fl (81.0-99.0); MEAN CORPUSCULAR HGB 31.9 pg (27.0-31.0); MEAN PLATELET VOLUME 8.8 fl (9.6-12.3); MONO # 0.6 10*3/uL (0.1-1.0); NEUT # 9.1 10*3/uL (2.3-7.9); NEUT % 71.6 % (47.0-73.0); PLATELET COUNT AUTOMATED 343 10*3/uL (130-400); RED BLOOD COUNT 4.67 10*6/uL (4.10-5.10); RED CELL DISTRI WIDTH 13.2 % (0-14.5); WHITE BLOOD COUNT 12.6 10*3/uL (4.8-10.8)
[2023-05-16 15:01] LABS: ALKALINE PHOSPHATASE 55 U/L (46-116); BUN 7 mg/dl (9-23); CHLORIDE 104 mmol/L (98-107); LIPASE 28 U/L (12-53); POTASSIUM 3.9 mmol/L (3.4-5.1); SGPT/ALT 10 U/L (5-49); TOTAL PROTEIN 7.6 gm/dL (6.0-8.0)
== END | disposition home or self-care (01) ==
LOC: LAB 14:19
PROVIDERS: ATTEND Nurse Practitioner Family
DX: E11.9 Type 2 diabetes mellitus without complications (principal); R10.9 Unspecified abdominal pain

== ENCOUNTER 2023-09-03 14:52 | Emergency (ER) | payer OTHER ==
[~2023-09-03] VITALS: Ht 165.1 cm; Wt 119.3 kg
[2023-09-03 15:09] VITALS: BP 129/78
[2023-09-03] MEDS ORDERED: AMOX-CLAV 875-1 EACH PO (15:32)
[2023-09-03] MEDS ORDERED: Amoxicillin/Clavulanate Pota 875 MG TAB PO ONE (15:35)
== END 2023-09-03 15:49 | disposition home or self-care (01) ==
LOC: ED 14:52
DX: J02.9 Acute pharyngitis, unspecified (principal); H92.09 Otalgia, unspecified ear; K21.9 Gastro-esophageal reflux disease without esophagitis; E11.65 Type 2 diabetes mellitus with hyperglycemia; E87.6 Hypokalemia; J45.909 Unspecified asthma, uncomplicated; F31.9 Bipolar disorder, unspecified; I10 Essential (primary) hypertension; F41.9 Anxiety disorder, unspecified; Z98.890 Other specified postprocedural states; F17.200 Nicotine dependence, unspecified, uncomplicated; Z87.442 Personal history of urinary calculi

== ENCOUNTER 2023-09-18 01:28 | Emergency (ER) | payer OTHER ==
[~2023-09-18] VITALS: Ht 165.1 cm; Wt 117.9 kg
[~2023-09-18 01:28] MED LIST changes: +AMOX-CLAV 875-1 EACH PO
[2023-09-18] MEDS ORDERED: Ondansetron Hydrochloride 4 MG TAB SL ONE (02:50)
[2023-09-18 03:08] LABS: BASO # 0.1 10*3/uL (0.0-0.1); BASO % 0.4 % (0.0-1.0); EOS # 0.1 10*3/uL (0.0-0.4); EOS % 0.7 % (1.0-4.0); HEMATOCRIT 41.1 % (37.0-47.0); LYMPH # 2.5 10*3/uL (1.3-4.4); LYMPH % 21.3 % (27.0-41.0); MEAN CELL VOLUME 96.3 fl (81.0-99.0); MEAN CORPUSCULAR HGB 31.9 pg (27.0-31.0); MEAN CORPUSCULAR HGB CONC 33.1 g/dl (33.0-37.0); MEAN PLATELET VOLUME 8.5 fl (9.6-12.3); MONO # 0.5 10*3/uL (0.1-1.0); MONO % 3.9 % (3.0-9.0); NEUT # 8.6 10*3/uL (2.3-7.9); NEUT % 73.4 % (47.0-73.0); PLATELET COUNT AUTOMATED 336 10*3/uL (130-400); RED BLOOD COUNT 4.27 10*6/uL (4.10-5.10); RED CELL DISTRI WIDTH 13.2 % (0-14.5); WHITE BLOOD COUNT 11.7 10*3/uL (4.8-10.8)
[2023-09-18 03:28] LABS: BUN 8 mg/dl (9-23); CHLORIDE 104 mmol/L (98-107); LIPASE 36 U/L (12-53); POTASSIUM 3.4 mmol/L (3.4-5.1)
[2023-09-18 03:29] VITALS: BP 126/77
[2023-09-18 04:48] LABS: BILIRUBIN Negative (Negative); BLOOD Negative (Negative); CLARITY Clear (Clear); COLOR Yellow (Yellow); GLUCOSE Negative (Negative); KETONE Trace (Negative); LEUKO ESTERASE Negative (Negative); NITRITE Negative (Negative); PH 5.5 (4.5-8.0); SPECIFIC GRAVITY 1.025 (1.001-1.030)
[2023-09-18 05:04] LABS: EPITHELIAL CELLS 31-40
[2023-09-18 05:05] LABS: CALCIUM OXALATE CRYSTALS Trace; WBC 0-2 wbc/hpf (0-5)
== END 2023-09-18 05:32 | disposition home or self-care (01) ==
LOC: ED 01:28
PROVIDERS: Emergency Medicine
DX: K59.00 Constipation, unspecified (principal); R11.0 Nausea; K21.9 Gastro-esophageal reflux disease without esophagitis; E87.6 Hypokalemia; E87.1 Hypo-osmolality and hyponatremia; F31.9 Bipolar disorder, unspecified; I10 Essential (primary) hypertension; F41.9 Anxiety disorder, unspecified; E11.65 Type 2 diabetes mellitus with hyperglycemia; J45.909 Unspecified asthma, uncomplicated; Z87.442 Personal history of urinary calculi; Z98.890 Other specified postprocedural states; F17.200 Nicotine dependence, unspecified, uncomplicated

== ENCOUNTER → 2024-02-27 | Outpatient (CLI) | payer OTHER ==
[2024-02-27 16:06] LABS: BASO # 0.1 10*3/uL (0.0-0.1); BASO % 0.8 % (0.0-1.0); EOS # 0.2 10*3/uL (0.0-0.4); EOS % 2.3 % (1.0-4.0); HEMATOCRIT 43.5 % (37.0-47.0); LYMPH # 2.7 10*3/uL (1.3-4.4); LYMPH % 28.9 % (27.0-41.0); MEAN CELL VOLUME 99.1 fl (81.0-99.0); MEAN CORPUSCULAR HGB 32.3 pg (27.0-31.0); MEAN CORPUSCULAR HGB CONC 32.6 g/dl (33.0-37.0); MEAN PLATELET VOLUME 8.5 fl (9.6-12.3); MONO # 0.4 10*3/uL (0.1-1.0); MONO % 4.7 % (3.0-9.0); NEUT # 5.9 10*3/uL (2.3-7.9); PLATELET COUNT AUTOMATED 346 10*3/uL (130-400); RED BLOOD COUNT 4.39 10*6/uL (4.10-5.10); RED CELL DISTRI WIDTH 13.2 % (0-14.5); WHITE BLOOD COUNT 9.3 10*3/uL (4.8-10.8)
[2024-02-27 16:30] LABS: ALKALINE PHOSPHATASE 58 U/L (46-116); BUN 7 mg/dl (9-23); CHLORIDE 106 mmol/L (98-107); CHOLESTEROL 143 mg/dL (<200); LDL CHOLESTEROL 101 mg/dL (9-159); POTASSIUM 3.7 mmol/L (3.4-5.1); SGPT/ALT 9 U/L (5-49); TRIGLYCERIDES 67 mg/dl (<150)
[2024-02-28 08:09] LABS: DHEA SULFATE 93.6 ug/dL (84.8-378.0)
== END | disposition home or self-care (01) ==
LOC: LAB 15:50
PROVIDERS: ATTEND Nurse Practitioner Primary Care
DX: I10 Essential (primary) hypertension (principal); E11.9 Type 2 diabetes mellitus without complications; K59.00 Constipation, unspecified; E28.2 Polycystic ovarian syndrome

== ENCOUNTER 2024-10-19 13:03 | Emergency (ER) | payer OTHER ==
[~2024-10-19] VITALS: Ht 165.1 cm; Wt 108.9 kg
[2024-10-19 13:21] VITALS: BP 139/81
[2024-10-19] MEDS ORDERED: Acetaminophen/Oxycodone 5 MG/325 MG TABLET PO ONE (13:30)
[2024-10-19] MEDS ORDERED: MELOXICAM15 MG PO (13:32)
== END 2024-10-19 13:56 | disposition home or self-care (01) ==
LOC: ED 13:03
DX: M25.512 Pain in left shoulder (principal); J45.909 Unspecified asthma, uncomplicated; E11.9 Type 2 diabetes mellitus without complications; F32.A Depression, unspecified; F41.9 Anxiety disorder, unspecified; F17.200 Nicotine dependence, unspecified, uncomplicated; Z79.899 Other long term (current) drug therapy; Z98.890 Other specified postprocedural states